=== PATIENT | female | born 1990 | race Caucasian/White ===

== ENCOUNTER 2018-10-06 23:05 | Emergency (ER) | payer OTHER ==
[~2018-10-06] VITALS: Ht 165.1 cm; Wt 136.1 kg
[2018-10-06] MEDS ORDERED: OMEPRAZOLE 20 M20 M1 PO (23:21)
[2018-10-06] MEDS ORDERED: LEXAPRO 10 MG T10 M1 PO (23:22)
[2018-10-06] MEDS ORDERED: MOBIC15 MG PO (23:56)
[2018-10-07 00:15] VITALS: BP 153/96
== END 2018-10-07 00:15 | disposition home or self-care (01) ==
LOC: ER 23:05
DX: S93.402A Sprain of unspecified ligament of left ankle, initial encounter (principal); X50.1XXA Overexertion from prolonged static or awkward postures, initial encounter; Y93.89 Activity, other specified; Y92.89 Other specified places as the place of occurrence of the external cause; Y99.8 Other external cause status